=== PATIENT | male | born 1960 | race Caucasian/White ===

== ENCOUNTER 2023-12-03 21:03 | Emergency (ER) | payer OTHER ==
[~2023-12-03] VITALS: Ht 167.6 cm; Wt 81.6 kg
[2023-12-03 21:10] VITALS: BP 134/73; PULSE 78; RESP 20; TEMP 98; O2SAT 95
[2023-12-03 22:39] LABS: BASOPHILS # (AUTO) 0.1 K/uL (0.00-0.22); BASOPHILS % (AUTO) 0.3 % (0.0-2.0); EOSINOPHILS % (AUTO) 0.1 % (0.0-4.0); HEMATOCRIT 39.8 % (36-52); HEMOGLOBIN 12.8 g/dL (12.0-18.0); LYMPHOCYTES # (AUTO) 1.1 K/uL (2.0-11.5); LYMPHOCYTES % (AUTO) 4.5 % (20.5-51.1); MEAN CORPUSCULAR HEMOGLOBIN 28 pg (27-31); MEAN CORPUSCULAR HGB CONC 32 g/dL (33-37); MEAN CORPUSCULAR VOLUME 86.3 fL (80-94); MONOCYTES # (AUTO) 1.4 K/uL (0.8-1.0); MONOCYTES % (AUTO) 5.8 % (1.7-9.3); NEUTROPHILS % (AUTO) 89.3 % (42.2-75.2); PLATELET COUNT (AUTO) 375 K/uL (140-450); RED BLOOD CELL COUNT(AUTO) 4.61 MIL/uL (4.20-6.10); RED CELL DISTRIBUTION WIDTH 14.6 % (11.6-13.7); WHITE BLOOD COUNT (AUTO) 23.5 K/uL (4.8-10.8)
[2023-12-03] MEDS ORDERED: CEFEPIME 2,000 MG VIAL IV ONE (22:57)
[2023-12-03] MEDS ORDERED: ceFAZolin 1,000 MG VIAL ONE (22:59)
[2023-12-03 23:04] LABS: INR 1.03 (0.8-1.2); PARTIAL THROMBOPLASTIN TIME 21.9 secs (22-35.6); PROTHROMBIN TIME 10.8 secs (10.8-13.4)
[2023-12-03 23:06] LABS: ALBUMIN 3.2 g/dL (3.4-5.0); ANION GAP 16.6 (8-16); CALCIUM 8.3 mg/dL (8.5-10.1); CARBON DIOXIDE 23.1 mmol/L (21-32); CREATININE 0.9 mg/dL (0.6-1.3); POTASSIUM 3.7 mmol/L (3.5-5.1); TOTAL BILIRUBIN 0.3 mg/dL (0.0-1.0); TOTAL PROTEIN, SERUM 6.9 g/dL (6.4-8.2)
[2023-12-03] MEDS: fentaNYL citrate 0.05 MG/ML VIAL IVP ONE (23:07)
[2023-12-03 23:58] VITALS: O2SAT 95
[2023-12-04] MEDS: MORPHINE SULFATE 4 MG/ML SYR IVP ONE ×2 (00:21→02:44)
[2023-12-04 00:59] VITALS: BP 140/74; PULSE 68; RESP 22
[2023-12-04] MEDS: MORPHINE SULFATE 2 MG/ML SYR IVP ONE (01:06)
[2023-12-04] MEDS: LIDOCAINE MPF 1% 10 MG/ML VIAL INJ ONE ×2 (01:55→03:11)
[2023-12-04 02:04] VITALS: O2SAT 94
[2023-12-04] MEDS ORDERED: MORPHINE SULFATE 4 MG/ML SYR ONE (02:40)
[2023-12-04] MEDS ORDERED: LIDOCAINE MPF 1% 5 ML ONE (02:58)
== END 2023-12-04 04:20 | disposition short-term general hospital (02) ==
LOC: MED 21:03
DX: S02.92XB Unspecified fracture of facial bones, initial encounter for open fracture (principal); S22.41XA Multiple fractures of ribs, right side, initial encounter for closed fracture; K66.1 Hemoperitoneum; R74.01 Elevation of levels of liver transaminase levels; Y90.5 Blood alcohol level of 100-119 mg/100 ml; V29.99XA Rider (driver) (passenger) of other motorcycle injured in unspecified traffic accident, initial encounter; Y93.55 Activity, bike riding; Y92.89 Other specified places as the place of occurrence of the external cause; Y99.8 Other external cause status
CPT/HCPCS: 12013; 36415; 70450; 70486; 71045; 71260; 72125; 74177; 80053; 83690; 85025; 85610; 85730; 90471; 90715; 93005; 96365; 96375; 96376; 99291; G0482; J0690; J2001; J2270; J3010; Q9967; J0692